=== PATIENT | female | born 1960 | race Caucasian/White ===

== ENCOUNTER → 2018-05-04 | Outpatient (CLI) | payer BC ==
--- NOTE | 2018-05-04 18:13 | CARD ---
MR#: [id number] Date of Study: 05/04/2018 Ordering Physician: HUMBERTO JOE, Referring Physician: HUMBERTO OJE Tech: Lucila Dooley RDCS APPROVED REPORT EXAM: Two-dimensional and M-mode echocardiogram with Doppler and color Doppler. Other Information Quality : Good Rhythm : RBBB INDICATION Abnormal ECG Dyspnea Fatigue 2D DIMENSIONS RVDd3.1 (2.9-3.5cm)Left Atrium(2D)3.1 (1.6-4.0cm) IVSd0.9 (0.7-1.1cm)Aortic Root(2D)3.3 (2.0-3.7cm) LVDd3.8 (3.9-5.9cm)LVOT Diameter2.1 (1.8-2.4cm) PWd0.9 (0.7-1.1cm)LVDs2.2 (2.5-4.0cm) FS (%) 30.0 %SV43.2 ml LVEF(%)60.0 (>50%) Aortic Valve AoV Peak Julio César.108.4cm/sAoV VTI27.7cm AO Peak GR.4.7mmHgLVOT Peak Julio César.98.5cm/s LVOT VTI 24.37cmAO Mean GR.3mmHg DAVID (VMAX)3.18ut0GOA (VTI)2.97cm2 Mitral Valve MV E Slkzxype64.1cm/sMV DECEL ROGA487zi MV A Pyjffjnl49.6cm/sMV STL28we E/A Ratio1.1MVA (PHT)4.16cm2 TDI E/Lateral E'7.8E/Medial E'12.0 Pulmonary Vein S1 Lbrcqkjb49.7cm/sD2 Lhjqsuuq69.9cm/s LEFT VENTRICLE The left ventricle is normal size. There is normal left ventricular wall thickness. The left ventricu lar systolic function is normal and the ejection fraction is within normal range. The Ejection Fracti on is 60%. There is normal LV segmental wall motion. RIGHT VENTRICLE The right ventricle is normal size. The right ventricular systolic function is normal. ATRIA The left atrium size is normal. The right atrium size is normal. The interatrial septum is intact wit h no evidence for an atrial septal defect or patent foramen ovale as noted on 2-D or Doppler imaging. AORTIC VALVE The aortic valve is calcified but opens well. Doppler and Color Flow revealed no significant aortic r egurgitation. There is no significant aortic valvular stenosis. MITRAL VALVE The mitral valve is calcified but opens well. There is no evidence of mitral valve prolapse. There is no mitral valve stenosis. Doppler and Color-flow revealed mild to moderate mitral regurgitation. TRICUSPID VALVE The tricuspid valve is normal in structure and function. Doppler and Color Flow revealed no tricuspid valve regurgitation noted. There is no tricuspid valve stenosis. PULMONIC VALVE The pulmonic valve is not well visualized. Doppler and Color Flow revealed no pulmonic valvular regur gitation. There is no pulmonic valvular stenosis. GREAT VESSELS The aortic root is normal in size. The ascending aorta is normal in size. The IVC is normal in size a nd collapses >50% with inspiration. PERICARDIAL EFFUSION There is no evidence of significant pericardial effusion. Critical Notification Critical Value: No <Conclusion> The left ventricular systolic function is normal and the ejection fraction is within normal range. T he Ejection Fraction is 60%. The left atrium size is normal. The right atrium size is normal. Doppler and Color Flow revealed no significant aortic regurgitation. Doppler and Color-flow revealed mild to moderate mitral regurgitation. Doppler and Color Flow revealed no tricuspid valve regurgitation noted. The pulmonic valve is not well visualized. There is no evidence of significant pericardial effusion. Signed by : Humberto Joe MD Electronically Approved : 05/04/2018 18:13:10
== END | disposition home or self-care (01) ==
LOC: ECHO 11:03
PROVIDERS: ATTEND Internal Medicine Cardiovascular Disease
DX: I34.0 Nonrheumatic mitral (valve) insufficiency (principal)
CPT/HCPCS: 93225; 93306

== ENCOUNTER 2018-05-10 16:27 | Observation (INO) | payer BC ==
[~2018-05-10] VITALS: Ht 162.6 cm; Wt 78.5 kg
[2018-05-10] MEDS: LEVOTHYROXINE 112 MCG TABLET PO SCH (07:30)
[2018-05-10 16:44] LABS: BASO % 1 % (0-3); EOS # 0.2 x10^3/uL (0.0-0.7); EOS % 3 % (0-3); HEMATOCRIT 43.2 % (36.0-47.0); HEMOGLOBIN 14.7 g/dL (12.0-15.5); LYMPH # 2.6 x10^3/uL (1.0-4.8); LYMPH % 43 % (24-48); MEAN CORPUSCULAR HEMOGLOBIN 29 pg (25-35); MEAN CORPUSCULAR HGB CONC 34 g/dL (31-37); MEAN CORPUSCULAR VOLUME 85 fL (79-100); MONO # 0.4 x10^3/uL (0.0-1.1); MONO % 7 % (0-9); NEUT # 2.8 x10^3uL (1.8-7.7); NEUT % 46 % (31-73); PLATELET COUNT 229 x10^3/uL (140-400); RED BLOOD COUNT 5.09 x10^6/uL (3.50-5.40); RED CELL DISTRIBUTION WIDTH 14.6 % (11.5-14.5); WHITE BLOOD COUNT 6.1 x10^3/uL (4.0-11.0)
[2018-05-10 16:57] LABS: CALCIUM 10.3 mg/dL (8.5-10.1); CREATININE 0.8 mg/dL (0.6-1.0); GFR 73.7
[2018-05-10] MEDS ORDERED: FAMOTIDINE 20 MG/2 ML VIAL IVP ONE (17:00)
[2018-05-10] MEDS ORDERED: ASPIRIN CHEWABLE 81 MG TABLET. PO ONE (17:00)
--- NOTE | 2018-05-10 17:01 | RAD ---
EXAM: Chest, single view. HISTORY: Pain. COMPARISON: None. FINDINGS: A frontal view of the chest is obtained. There is no infiltrate, pleural effusion or pneumothorax. The heart is normal in size. IMPRESSION: No acute pulmonary finding. Electronically signed by: Stephanie Walsh MD (05/10/2018 4:57 PM) [place] [id number]
[2018-05-10 17:03] LABS: ALBUMIN 4.1 g/dL (3.4-5.0); TOTAL BILIRUBIN 0.7 mg/dL (0.2-1.0); TOTAL PROTEIN 8.2 g/dL (6.4-8.2)
--- NOTE | 2018-05-10 17:16 | EKG ---
[facility] [address] [place] [address] Test Date: 2018-05-10 Test Time: 16:38:09 Pat Name: SMITH BARBOZA Department: Room: Gender: F [employer]astering [employer]or: : [id number] Requested By: DIA HUBER Order Number: [id number] Reading MD: Babak Marques Measurements Intervals [place] Rate: 59 P: 53 LA: 188 QRS: -59 QRSD: 142 T: 24 QT: 430 QTc: 426 Interpretive Statements SINUS RHYTHM ABNORMAL LEFT AXIS DEVIATION LEFT ANTERIOR FASCICULAR BLOCK RIGHT BUNDLE BRANCH BLOCK QRS(T) CONTOUR ABNORMALITY CONSIDER ANTEROLATERAL MYOCARDIAL DAMAGE Electronically Signed On 05-11-2018 11:46:42 CDT by Babak Marques
--- NOTE | 2018-05-10 18:05 | PHYS DOC ---
Past Medical History Past Medical History: Hypothyroid Past Surgical History: Tonsillectomy, Tubal ligation Additional Past Surgical Histo: KNEEX2, ANKLE, JAW, PARTIAL HYSTER Alcohol Use: Occasionally Drug Use: None Adult General Chief Complaint Chief Complaint: CHEST PAIN-CARDIAC NATURE HPI HPI Patient is a 57 year old female with history of GERD who presents with episodic substernal chest pain over the past 2 weeks. Symptoms are described as pressure-like in last less than 5 minutes at a time. Symptoms are not related with exertion relieved with rest and are not made worse with eating. Denies abdominal pain. No fever, chills, nausea vomiting or sweats. Denies constipation or rectal bleeding, dark tarry stools. No other acute symptoms or complaints.[] Review of Systems Review of Systems Review symptoms as per history of present illness. All other review symptoms are negative. All other systems were reviewed and found to be within normal limits, except as documented in this note. Current Medications Current Medications Current Medications Medications (Trade) Dose Ordered Sig/Griselda Start Time Stop Time Status Last Admin Dose Admin Aspirin (Children'S Aspirin) 324 mg 1X ONCE 05/10/18 17:00 05/10/18 17:01 DC 05/10/18 17:25 324 MG Famotidine (Pepcid Vial) 20 mg 1X ONCE 05/10/18 17:00 05/10/18 17:01 DC 05/10/18 17:24 20 MG Allergies Allergies Allergies Coded Allergies Type Severity Reaction Last Updated Verified No Known Drug Allergies 05/10/18 No Physical Exam Physical Exam Constitutional: Well developed, well nourished, no acute distress, non-toxic appearance. [] HENT: Normocephalic, atraumatic, bilateral external ears normal, oropharynx moist, no oral exudates, nose normal. [] Eyes: PERRLA, EOMI, conjunctiva normal, no discharge. [] Neck: Normal range of motion, no tenderness, supple, no stridor. [] Cardiovascular:Heart rate regular rhythm, no murmur [] Lungs & Thorax: Bilateral breath sounds clear to auscultation [] Abdomen: Bowel sounds normal, soft, no tenderness. [] Skin: Warm, dry, no erythema, no rash. [] Back: No tenderness, no CVA tenderness. [] Extremities: No tenderness, no cyanosis, no clubbing, ROM intact, no edema. [] Neurologic: Alert and oriented X 3, normal motor function, normal sensory function, no focal deficits noted. [] Psychologic: Affect normal, judgement normal, mood normal. [] Current Patient Data Vital Signs Vital Signs Date Time Temp Pulse Resp B/P (MAP) Pulse Ox O2 Delivery O2 Flow Rate FiO2 05/10/18 16:30 97.6 56 18 165/82 (109) 97 Room Air 97.6 Lab Values Laboratory Tests Test 05/10/18 16:40 White Blood Count 6.1 x10^3/uL (4.0-11.0) Red Blood Count 5.09 x10^6/uL (3.50-5.40) Hemoglobin 14.7 g/dL (12.0-15.5) Hematocrit 43.2 % (36.0-47.0) Mean Corpuscular Volume 85 fL (79-100) Mean Corpuscular Hemoglobin 29 pg (25-35) Mean Corpuscular Hemoglobin Concent 34 g/dL (31-37) Red Cell Distribution Width 14.6 % (11.5-14.5) H Platelet Count 229 x10^3/uL (140-400) Neutrophils (%) (Auto) 46 % (31-73) Lymphocytes (%) (Auto) 43 % (24-48) Monocytes (%) (Auto) 7 % (0-9) Eosinophils (%) (Auto) 3 % (0-3) Basophils (%) (Auto) 1 % (0-3) Neutrophils # (Auto) 2.8 x10^3uL (1.8-7.7) Lymphocytes # (Auto) 2.6 x10^3/uL (1.0-4.8) Monocytes # (Auto) 0.4 x10^3/uL (0.0-1.1) Eosinophils # (Auto) 0.2 x10^3/uL (0.0-0.7) Basophils # (Auto) 0.0 x10^3/uL (0.0-0.2) Sodium Level 144 mmol/L (136-145) Potassium Level 4.0 mmol/L (3.5-5.1) Chloride Level 102 mmol/L (98-107) Carbon Dioxide Level 32 mmol/L (21-32) Anion Gap 10 (6-14) Blood Urea Nitrogen 12 mg/dL (7-20) Creatinine 0.8 mg/dL (0.6-1.0) Estimated GFR (Cockcroft-Gault) 73.7 BUN/Creatinine Ratio 15 (6-20) Glucose Level 94 mg/dL (70-99) Calcium Level 10.3 mg/dL (8.5-10.1) H Total Bilirubin 0.7 mg/dL (0.2-1.0) Aspartate Amino Transferase (AST) 15 U/L (15-37) Alanine Aminotransferase (ALT) 30 U/L (14-59) Alkaline Phosphatase 102 U/L (46-116) Troponin I Quantitative < 0.017 ng/mL (0.000-0.055) Total Protein 8.2 g/dL (6.4-8.2) Albumin 4.1 g/dL (3.4-5.0) Albumin/Globulin Ratio 1.0 (1.0-1.7) Laboratory Tests 05/10/18 16:40 Laboratory Tests 05/10/18 16:40 EKG EKG [EKG: Normal sinus rhythm] Radiology/Procedures Radiology/Procedures [Chest x-ray: No acute cardiopulmonary findings per radiology report] Course & Med Decision Making Course & Med Decision Making Pertinent Labs and Imaging studies reviewed. (See chart for details) [Patient asymptomatic in the emergency department. Her Heath to admit.] Dragon Disclaimer Dragon Disclaimer This electronic medical record was generated, in whole or in part, using a voice recognition dictation system. Departure Departure Impression: Primary Impression: Chest pain Disposition: ADMITTED INPATIENT Admitting Physician: Humberto Joe Condition: GOOD Referrals: JEREMY TEMPLE MD (PCP) DIA HUBER DO May 10, 2018 18:05
[2018-05-10] MEDS ORDERED: LEVO112T2 PO (18:41)
[2018-05-10 19:45] VITALS: BP 149/92
[2018-05-10 22:40] VITALS: BP 108/54
[2018-05-11 07:00] VITALS: BP 140/84
[2018-05-11] MEDS: LEVOTHYROXINE 112 MCG TABLET PO SCH (08:46)
--- NOTE | 2018-05-11 08:57 | PDOC1 ---
History and Physical Date of Admission Date of Admission DATE: 05/11/18 TIME: 08:43 Identification/Chief Complaint Chief Complaint Chest pain Source Source: Patient History of Present Illness History of Present Illness Tammy Mast is a 58 y/o female presenting with intermittent chest pain over the last 2-3 weeks. Her chest pain is non exertional, and she cannot identify any specific triggers. The pain goes away after 1-2 minutes, and she typically tries to sit and remain still during these episodes. The have occurred at different points throughout the day, and have woken her up from sleeping. She describes the pain as substernal pressure, nonradiating. During these episodes she feels palpitations, and she stated that she feels 'foggy'. Over the last couple of weeks she stated that shes had times where she'll be at work, and going to do a task, and cannot figure out what the next step in the procedure is. She says there is some correlation to these episodes of confusion with the chest pain. These episodes have never occurred prior to them beginning 2-3 weeks ago. Past Medical History GI: GERD Endocrine: Hypothyroidism Past Surgical History Past Surgical History: Tubal Ligation, Tonsillectomy Family History Family History Mom: HTN Dad: T2DM Social History Smoke: Quit (quit 20 years ago. Smoked from age [age]) Drugs: None Current Problem List Problem List chest pain nonexertional Current Medications Current Medications Current Medications Famotidine (Pepcid Vial) 20 mg 1X ONCE IVP Last administered on 05/10/18at 17: 24; Start 05/10/18 at 17:00; Stop 05/10/18 at 17:01; Status DC Aspirin (Children'S Aspirin) 324 mg 1X ONCE PO Last administered on at 17:25; Start 05/10/18 at 17:00; Stop 05/10/18 at 17:01; Status DC Levothyroxine Sodium (Synthroid) 112 mcg DAILYAC PO ; Start 05/10/18 at 07:30 Active Scripts Active Reported Synthroid (Levothyroxine Sodium) 112 Mcg Tablet 1 Tab PO DAILY Allergies Allergies: Coded Allergies: pepper (genus Capsicum) (Verified Allergy, Severe, Rash, 05/10/18) onion (Verified Allergy, Intermediate, 05/11/18) ROS Eyes: No Blurry vision, No Decreased vision, No Eye Pain HEENT: No: Heacaches, Visual Changes, Hearing change Cardiovascular: yes Chest Pain (chest pain intermittent episodes lasting 1-2 minutes, occuring 2-3x per day, no known triggers), yes Palpitations (pt states she feels palpitations during episodes of chset pain) Gastrointestinal: No Nausea, No Vomiting, No Diarrhea, No Constipation Musculoskeletal: No Gait Disturbance, No Muscle Pain, No Muscular Weakness Neurological: Yes Confusion (pt states she has had intermittent confusion while at work, she thinks related to episodes of chest pain ) Physical Exam General: Alert, Oriented X3, Cooperative, No acute distress Lungs: Clear to auscultation, Normal air movement Heart: S1S2, RRR, no thrills, no rubs, no gallops, no murmurs Cardiovascular: S1, S2 Vitals Vitals Vital Signs Date Time Temp Pulse Resp B/P (MAP) Pulse Ox O2 Delivery O2 Flow Rate FiO2 05/11/18 07:00 98.0 69 16 140/84 (102) 97 Room Air 98.0 Labs Labs Laboratory Tests Test 05/10/18 16:40 05/10/18 23:33 White Blood Count 6.1 x10^3/uL (4.0-11.0) Red Blood Count 5.09 x10^6/uL (3.50-5.40) Hemoglobin 14.7 g/dL (12.0-15.5) Hematocrit 43.2 % (36.0-47.0) Mean Corpuscular Volume 85 fL (79-100) Mean Corpuscular Hemoglobin 29 pg (25-35) Mean Corpuscular Hemoglobin Concent 34 g/dL (31-37) Red Cell Distribution Width 14.6 % (11.5-14.5) Platelet Count 229 x10^3/uL (140-400) Neutrophils (%) (Auto) 46 % (31-73) Lymphocytes (%) (Auto) 43 % (24-48) Monocytes (%) (Auto) 7 % (0-9) Eosinophils (%) (Auto) 3 % (0-3) Basophils (%) (Auto) 1 % (0-3) Neutrophils # (Auto) 2.8 x10^3uL (1.8-7.7) Lymphocytes # (Auto) 2.6 x10^3/uL (1.0-4.8) Monocytes # (Auto) 0.4 x10^3/uL (0.0-1.1) Eosinophils # (Auto) 0.2 x10^3/uL (0.0-0.7) Basophils # (Auto) 0.0 x10^3/uL (0.0-0.2) Sodium Level 144 mmol/L (136-145) Potassium Level 4.0 mmol/L (3.5-5.1) Chloride Level 102 mmol/L (98-107) Carbon Dioxide Level 32 mmol/L (21-32) Anion Gap 10 (6-14) Blood Urea Nitrogen 12 mg/dL (7-20) Creatinine 0.8 mg/dL (0.6-1.0) Estimated GFR (Cockcroft-Gault) 73.7 BUN/Creatinine Ratio 15 (6-20) Glucose Level 94 mg/dL (70-99) Calcium Level 10.3 mg/dL (8.5-10.1) Total Bilirubin 0.7 mg/dL (0.2-1.0) Aspartate Amino Transf (AST/SGOT) 15 U/L (15-37) Alanine Aminotransferase (ALT/SGPT) 30 U/L (14-59) Alkaline Phosphatase 102 U/L (46-116) Troponin I Quantitative < 0.017 ng/mL (0.000-0.055) < 0.017 ng/mL (0.000-0.055) Total Protein 8.2 g/dL (6.4-8.2) Albumin 4.1 g/dL (3.4-5.0) Albumin/Globulin Ratio 1.0 (1.0-1.7) Laboratory Tests Test 05/10/18 16:40 05/10/18 23:33 White Blood Count 6.1 x10^3/uL (4.0-11.0) Red Blood Count 5.09 x10^6/uL (3.50-5.40) Hemoglobin 14.7 g/dL (12.0-15.5) Hematocrit 43.2 % (36.0-47.0) Mean Corpuscular Volume 85 fL (79-100) Mean Corpuscular Hemoglobin 29 pg (25-35) Mean Corpuscular Hemoglobin Concent 34 g/dL (31-37) Red Cell Distribution Width 14.6 % (11.5-14.5) Platelet Count 229 x10^3/uL (140-400) Neutrophils (%) (Auto) 46 % (31-73) Lymphocytes (%) (Auto) 43 % (24-48) Monocytes (%) (Auto) 7 % (0-9) Eosinophils (%) (Auto) 3 % (0-3) Basophils (%) (Auto) 1 % (0-3) Neutrophils # (Auto) 2.8 x10^3uL (1.8-7.7) Lymphocytes # (Auto) 2.6 x10^3/uL (1.0-4.8) Monocytes # (Auto) 0.4 x10^3/uL (0.0-1.1) Eosinophils # (Auto) 0.2 x10^3/uL (0.0-0.7) Basophils # (Auto) 0.0 x10^3/uL (0.0-0.2) Sodium Level 144 mmol/L (136-145) Potassium Level 4.0 mmol/L (3.5-5.1) Chloride Level 102 mmol/L (98-107) Carbon Dioxide Level 32 mmol/L (21-32) Anion Gap 10 (6-14) Blood Urea Nitrogen 12 mg/dL (7-20) Creatinine 0.8 mg/dL (0.6-1.0) Estimated GFR (Cockcroft-Gault) 73.7 BUN/Creatinine Ratio 15 (6-20) Glucose Level 94 mg/dL (70-99) Calcium Level 10.3 mg/dL (8.5-10.1) Total Bilirubin 0.7 mg/dL (0.2-1.0) Aspartate Amino Transf (AST/SGOT) 15 U/L (15-37) Alanine Aminotransferase (ALT/SGPT) 30 U/L (14-59) Alkaline Phosphatase 102 U/L (46-116) Troponin I Quantitative < 0.017 ng/mL (0.000-0.055) < 0.017 ng/mL (0.000-0.055) Total Protein 8.2 g/dL (6.4-8.2) Albumin 4.1 g/dL (3.4-5.0) Albumin/Globulin Ratio 1.0 (1.0-1.7) VTE Prophylaxis Ordered VTE Prophylaxis Devices: No VTE Pharmacological Prophylaxi: No Assessment/Plan Assessment/Plan intermittent chest pain, non-exertional stress test 05/11 to evaluate for cardiac ischemia continue to monitor for triggers of chest pain ARNULFO ENGLISH MD May 11, 2018 08:57
[2018-05-11] MEDS ORDERED: ONDANSETRON PF 4 MG/2 ML VIAL. IV PRN (11:15)
--- NOTE | 2018-05-11 12:28 | RAD ---
MR#: [id number] Date of Study: 05/11/2018 Ordering Physician: ARNULFO ENGLISH Referring Physician: MADIHA ALVARADO Tech: RT Gia (R) (N) APPROVED REPORT Test Type: Exercise Stress Nurse/Tech: [place] RN Test Indications: chest pain Cardiac History: Mitral valve regurgitation Medications: See Electronic Medical Record Medical History: See Electronic Medical Record Resting ECG: SR c BBB Resting Heart Rate: 80 bpm Resting Blood Pressure: 133/72mmHg Pretest Chest Pain: None Nurse/Tech Notes Lungs CTA, S1S2 Consent: The procedure was explained to the patient in lay terms. Informed consent was witnessed. Franklin eout was entered into [employer]. History and Stress Test performed by [place] RN Stress Symptoms No chest pain or symptoms. POST EXERCISE Reason for Termination: Reached target heart rate Target HR: 138 Max HR: 145 bpm 89% of Maximum Predicted HR: 162 bpm Exercise duration: 8:31 min:sec, 3 Stage Max Blood Pressure: 153/75mmHg Blood Pressure response to exercise: Normal blood pressure response during stress. Heart Rate response to exercise: normal response Chest Pain: No. Arrhythmia: No. ST Change: No. INTERPRETATION Stress EKG Conclusion: The resting EKG shows a sinus rhythm, nonspecific ST changes and a bifascicula r block. The stress EKG shows no evidence of stress induced ischemia. No EKG evidence of stress induced ischemia. Imaging Protocol IMAGE PROTOCOL: Rest Tc-99m/stress Tc-99m 1 day Rest: Stress: Viability: Radiopharm.Tc99m XweajdiecEc82p Sestamibi Dose11.5mCi 34mCi Duration 113.5min. 13.5min. Img Date 05/11/2018 05/11/2018 Inj-Img [id number]. 60min. Rest Admin Site:IV - Left ForearmAdministrator:RT Gia (R)(N) Stress Admin Site: IV - Left ForearmAdministrator: RT Mary Kate (R)(N) STRESS DATA End Diast. Vol.57.0mlLVEDV index BSA31.0ml End Syst. Vol.8.0mlLVESV index BSA5.0ml Myocardial Rccn844.0gEject. Nhkjitqr76.0% Stress Scores Regional WT2.00Summed WT9.00 Regional WM0.00Summed WM0.00 LV Perfusion The stress scans show no significant defects. The rest scans show no significant defects. Nuclearn imaging shows no reversible ischemia or infarct. Wall Motion Normal LV systolic function with an ejection fraction of greater than 70%. LV Perf. Quant 17 Seg. SSS0.00 17 Seg. SRS1.00 17 Seg. SDS0.00 Stress Defect Extent (% LAD)0.00Rest Defect Extent (% LAD)0.00Rev. Defect Extent (% LAD)0.00 Stress Defect Extent (% LCX) 0.00Rest Defect Extent (% LCX)5.00Rev. Defect Extent (% LCX)0.00 Stress Defect Extent (% RCA)0.00Rest Defect Extent (% RCA)0.00Rev. Defect Extent (% RCA)0.00 Stress Defect Extent (% LEIDA)0.00Rest Defect Extent (% LEIDA)1.30Rev. Defect Extent (% LEIDA)0.00 Conclusion 1. Good exercise tolerance. 2. No chest pain reported with exertion. 3. Abnormal baseline EKG but no EKG evidence of stress induced ischemia. 4. Nuclear imaging shows no reversible ischemia or infarct. 5. Normal LV systolic function with an ejection fraction of greater than 70%. 6. Low to moderately low risk treadmill nuclear stress test. Signed by : Justice Gamboa MD Electronically Approved : 05/11/2018 12:27:37
[2018-05-11 15:00] VITALS: BP 111/73
--- NOTE | 2018-05-11 18:31 | PDOC3 ---
*Discharge Summary* Date of Admission: May 10, 2018 Date of Discharge: May 11, 2018 Admitting Diagnosis Chest pain Final Diagnosis Chest pain Noncardiac chest pain GERD Procedures Stress MPI Brief Hospital Course Patient is a very pleasant 57-year-old lady that has a known history of GERD and has been having some episodes of chest discomfort for the past week sometimes associated with exertion sometimes associated with some lightheadedness or confusion. I saw her in the office yesterday and her physical exam was normal and the EKG showed sinus rhythm with right bundle branch block. Her right bundle branch block is not new. Her blood pressure has also been running high. In view of the chest pains she was referred to the emergency room and admitted. After she was admitted serial enzymes were done that were negative. She had no further changes in her EKG. A stress MPI was done today that showed a left ventricular ejection fraction of about 70% and no evidence of ischemia. Therefore in view of this I decided to go ahead and discharge her. We have discussed with the patient the situation as well as the options, medications, diet, activity and follow-up. To me GERD may be one of the possibilities in this patient as well as some musculoskeletal discomforts. I would like for the patient to follow-up with a rail car loader. 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 Her adrenal insufficiency resolved with time but in view of this I would rather leave it up to the rail car loader asked to her evaluation for GERD as well as the treatment. Patient discharged in stable condition. Home Meds Reported Medications Levothyroxine Sodium (SYNTHROID) 112 Mcg Tablet, 1 TAB PO DAILY, #30 TAB 5 Refills 05/10/18 Scheduled Levothyroxine Sodium (Synthroid), 1 TAB PO DAILY, (Reported) Time Spent Total time spent with patient [] minutes for coordination of care, counseling, and education. ARNULFO ENGLISH MD May 11, 2018 18:31
== END 2018-05-11 18:03 | disposition home or self-care (01) ==
LOC: ER 16:27 → 2 NORTH 17:30 → INTOOBSV 17:30
PROVIDERS: ADMIT Internal Medicine Cardiovascular Disease; ATTEND Internal Medicine Cardiovascular Disease
DX: R07.89 Other chest pain (principal); E03.9 Hypothyroidism, unspecified; E27.40 Unspecified adrenocortical insufficiency; I45.10 Unspecified right bundle-branch block; K21.9 Gastro-esophageal reflux disease without esophagitis; Z82.49 Family history of ischemic heart disease and other diseases of the circulatory system; Z83.3 Family history of diabetes mellitus
CPT/HCPCS: 36415; 71045; 78452; 80053; 84484; 85025; 93005; 93017; 96374; 96376; 99285; A9500; G0378; G0379; J2405; S0028